=== PATIENT | female | born 1980 | race Caucasian/White ===

== ENCOUNTER 2019-07-20 15:10 | Emergency (ER) | payer MEDICAID, OTHER ==
[~2019-07-20] VITALS: Ht 160 cm; Wt 61.5 kg
[~2019-07-20 15:10] MED LIST: DIPH-423 PO; IBUP-1572 PO; IBUP200C5 PO; NORCO10T PO; PHEN-786 PO; TOF25T PO
[2019-07-20 15:54] LABS: BASOPHILS % (AUTO) 0.4 % (0-1); EOSINOPHILS # (AUTO) 0.1 X10'3 (0-0.9); EOSINOPHILS % (AUTO) 0.8 % (0-6); HEMATOCRIT 40.2 % (35.0-45.0); LYMPHOCYTES % (AUTO) 9.4 % (21-51); MEAN CORPUSCULAR HEMOGLOBIN 33.8 PG (27.0-31.0); MEAN CORPUSCULAR HGB CONC 34.7 g/dL (33.0-36.5); MEAN CORPUSCULAR VOLUME 97.3 FL (78-98); MEAN PLATELET VOLUME 8.3 FL (7.4-10.4); MONOCYTES # (AUTO) 0.6 X10'3 (0-0.9); MONOCYTES % (AUTO) 5.9 % (2-12); NEUTROPHILS % (AUTO) 83.5 % (42-75); PLATELET COUNT 272 X10'3 (140-440); RED BLOOD COUNT 4.14 X10'6 (4.20-5.60); RED CELL DISTRIBUTION WIDTH 12.2 % (11.5-14.5); WHITE BLOOD COUNT 10.8 X10'3 (4.5-11.0)
[2019-07-20 15:55] LABS: URINE HCG POSITIVE (NEG)
[2019-07-20 15:58] LABS: CLARITY,URINE SLIGHTLY CLOUDY (Clear); COLOR,URINE YELLOW (Yellow); GLUCOSE, URINE NEGATIVE (Neg); KETONES,URINE 15 mg/dl (Neg); LEUKOCYTE ESTERASE ,URINE NEGATIVE (Neg); NITRITES, URINE NEGATIVE (Neg); OCCULT BLOOD,URINE NEGATIVE (Neg); PROTEIN,URINE NEGATIVE (Neg); UROBILINOGEN,URINE 0.2 E.U/dL (0.2-1.0)
[2019-07-20 15:59] LABS: UA COLLECTION TYPE CLN CATCH MIDSTREAM
[2019-07-20 16:05] LABS: MUCUS STRANDS MANY /LPF (Neg); SQUAMOUS EPITHELIAL CELL,UR MANY /LPF (FEW)
[2019-07-20 16:06] LABS: BACTERIA,URINE 1+ /HPF (Neg); RBC,URINE 0-2 /HPF (0-2); WBC,URINE 0-4 /HPF (0-4)
[2019-07-20 16:08] LABS: ALANINE AMINOTRANSFERASE 19 U/L (12-78); ALBUMIN 4.2 G/DL (3.4-5.0); ALBUMIN/GLOBULIN RATIO 1.2 (1.1-1.5); ALKALINE PHOSPHATASE 46 IU/L (46-116); ANION GAP 7 (8-16); ASPARTATE AMINO TRANSFERASE 17 U/L (10-37); BILIRUBIN,TOTAL 0.5 MG/DL (0.1-1.0); BLOOD UREA NITROGEN 10 MG/DL (7-18); BUN/CREATININE RATIO 14.5 (6.6-38.0); CALCIUM 8.8 MG/DL (8.5-10.1); CHLORIDE 106 MMOL/L (99-107); CREATININE 0.69 MG/DL (0.40-0.90); GLUCOSE 103 MG/DL (70-104); LIPASE 99 U/L (73-393); POTASSIUM 3.8 MMOL/L (3.5-5.1); SODIUM 140 MMOL/L (135-145); TOTAL PROTEIN 7.6 G/DL (6.4-8.2); eGFR > 90 ML/MIN
[2019-07-20] MEDS ORDERED: ondansetron 4mg rapidly disintigrating tab PO ONE (18:30)
[2019-07-20] MEDS ORDERED: ketorolac trometh. 30mg/ml inj. IM ONE (18:30)
--- NOTE | 2019-07-20 18:49 | NUR ---
2ND PAGE FOR U/S AT 18:48
[2019-07-20 19:09] LABS: BETA HCG,QUANTITATIVE 405 mIU/ml
[2019-07-20] MEDS ORDERED: normal saline 1000ML IV soln IVB ONE (19:55)
--- NOTE | 2019-07-20 20:32 | NUR ---
primary RN spoke with patient and offered to allow to be at bedside to be involved in decision making. pt stated that she didn't want her to come back.
[2019-07-20 20:53] VITALS: BP 113/82
== END 2019-07-20 20:50 | disposition home or self-care (01) ==
LOC: ER 15:11
DX: O00.90 Unspecified ectopic pregnancy without intrauterine pregnancy (principal); R10.11 Right upper quadrant pain; R11.2 Nausea with vomiting, unspecified; Z98.51 Tubal ligation status; Z79.899 Other long term (current) drug therapy
CPT/HCPCS: 36415; 71045; 76700; 76801; 80053; 81001; 81025; 83690; 84702; 85025; 93005; 96372; 99285; J1885